=== PATIENT | female | born 1940 | race African-American/Black ===

== ENCOUNTER 2017-04-27 16:33 | Inpatient (IN) | payer MEDICARE ==
[~2017-04-27] VITALS: Ht 167.6 cm; Wt 69.4 kg
--- NOTE | ~2017-04-27 | CR72 ---
[facility] A Service of [facility] RADIOLOGY TEXT RESULTS PATIENT: KEATON SHEPARD LOCATION: [facility] 238-01 : 40 UNIT #: [id number] AGE: [address]: Fidelina Brannon MD SEX: F ORDER DR: [id number] [facility] [address] [facility]. [place], [place] [address] [id number] MR#: [id number] Acc #: [id number] NAME: KEATON SHEPARD : 1940 SEX: F STUDY DATE/TIME: 04/27/2017 17:16 UNIT: C2A ROOM: [facility] STUDY DESCRIPTION: CR Chest Single View Portable Attending Physician: Fidelina Brannon M.D. Ordering Physician: Castillo Lutz M.D. Primary Care Physician: Primary Care Physician No MEDICAL IMAGING REPORT This report is preliminary unless electronic signature is present EXAM Frontal chest 04/27/2017 INDICATIONS 76-year-old female with a fever, altered mental status, lethargy. Symptoms began yesterday. Hypertension. TECHNIQUE Frontal chest was performed. No comparisons. FINDINGS Postop changes of median sternotomy and bypass surgery present. Mild dextroscoliosis. Cardiac silhouette is enlarged. The vascularity is normal. There is eventration or elevation of the left hemidiaphragm, chronicity unclear without prior studies for comparison. There is some probable atelectasis/scarring in the lower lung zone. No effusion or dense consolidation. IMPRESSION 1. Cardiomegaly and postoperative changes related to bypass surgery. No effusion or dense consolidation. Eventration or elevation of the left hemidiaphragm of uncertain duration. Dictated by... Jass Martinez M.D. THIS IS AN ELECTRONICALLY VERIFIED REPORT Jass Martinez M.D. at 04/29/2017 6:14 AM Juan Carlos TD: 04/28/2017 08:23 [facility] A Service of [facility] RADIOLOGY TEXT RESULTS PATIENT: KEATON SHEPARD LOCATION: [facility] 238-01 : 40 UNIT #: [id number] AGE: [address]: Fidelina Brannon MD SEX: F ORDER DR: JOB #: [id number] MEDICAL IMAGING REPORT Page 1 of 1 COPY
--- NOTE | ~2017-04-27 | HP ---
Unit #: [id number] #: [id number] Patient: KEATON SHEPARD [id number] [address] [address] [id number] MR#: [id number] NAME: KEATON SHEPARD ROOM: Age: 76 Sex: F Admission Date: 04/27/2017 : 1940 Attending Physician: Castillo Lutz M.D. Primary Care Physician: No Primary Care Physician HISTORY AND PHYSICAL CHIEF COMPLAINT UTI, acute kidney injury. HISTORY This pleasant 76-year-old female with AODM, CAD, hypertension, is admitted for UTI with acute kidney injury. The patient states that she was well until yesterday when she developed dizziness when attempting to ambulate, along with urinary frequency, dysuria, anorexia. She slept all day. Her symptoms continued today. She was brought to this emergency department with a low-grade temperature. On urinalysis she has significant pyuria. Labs show acute kidney injury and dehydration. In the ER her rectal temperature was 102.8. She was given Tylenol, bolused with a liter of saline, and given a gram of Rocephin. PAST MEDICAL HISTORY 1. AODM x5 years. 2. CAD, status post three vessel CABG 1998. 3. Essential hypertension. 4. Hyperlipidemia. 5. Total abdominal hysterectomy. ALLERGIES No known drug allergies. HOME MEDICATIONS 1. Possibly Maxzide and lisinopril. 2. Pepcid 20 mg b.i.d. 3. Zocor 20 mg q.h.s. 4. Metformin 1000 mg b.i.d. 5. Tessalon perles p.r.n. FAMILY HISTORY CAD. SOCIAL HISTORY The patient lives with her daughter. She stopped smoking 25 years ago, does not drink alcohol. REVIEW OF SYSTEMS Notable for fatigue, urinary frequency, dizziness, dysuria, AODM, CAD, hypertension, hyperlipidemia, hysterectomy. All other systems were reviewed and are otherwise negative. Unit #: [id number] #: [id number] Patient: KEATON SHEPARD PHYSICAL EXAMINATION GENERAL: Very pleasant 76-year-old female currently in no acute distress. VITAL SIGNS: Rectal temperature is 102.8. Pulse 81. Respirations 16. Blood pressure 120/72. O2 saturation is 98% on room air. HEENT: Eyes PERRLAA, extraocular muscles are intact, some clouding of the cornea on the right. Pharynx is benign. NECK: Supple, without adenopathy or thyromegaly. CHEST: Clear. BACK: Without CVA tenderness. CARDIAC: Normal S1 and S2, without S3, S4 or murmur. ABDOMEN: Bowel sounds are present. No hepatosplenomegaly, tenderness or masses. EXTREMITIES: Without edema. Pedal pulses are present but diminished. No ulcers on the feet. NEUROLOGIC EXAM: Patient is awake, alert, oriented. Cranial nerves are intact. Equal strength throughout. DIAGNOSTIC STUDIES LABORATORY: On admission labs hematocrit is 35.9, white blood count is 14.3, normal platelet count, normal coags, negative cardiac markers; SMA-12 glucose 162, BUN 32, creatinine 1.4, sodium 130, chloride 94, alkaline phosphatase 97, normal lactic acid, lipase and amylase. Urinalysis positive leukocyte esterase and protein with 100 to 200 red cells, 50 to 100 white cells, 4+ bacteria. No squamous cells. CARDIOVASCULAR: EKG shows normal sinus rhythm, rate 72 with T-wave inversions noted laterally without an old EKG for comparison. IMAGING: Chest x-ray no acute disease. ASSESSMENT 1. Urinary tract infection. 2. Acute kidney injury secondary to dehydration. 3. Coronary artery disease, status post coronary artery bypass graft. 4. Hypovolemic hyponatremia. 5. Essential hypertension. 6. Hyperlipidemia. 7. Adult-onset diabetes mellitus. PLANS 1. IV fluids. 2. Antibiotics. 3. Obtain home medication sheet. 4. Sliding scale insulin. 5. DVT prophylaxis. 6. Would hold Maxzide if patient currently is taking. Dictated by Kayleen Nickerson M.D. AML/cf TD: 04/27/2017 20:48 JOB #: [id number] CC: [facility], [facility] Unit #: [id number] #: [id number] Patient: KEATON SHEPARD HISTORY AND PHYSICAL Page 1 of 1 X Kayleen Nickerson MD HISTORY AND PHYSICAL
--- NOTE | ~2017-04-27 | DS ---
Unit #: [id number] #: [id number] Patient: KEATON SHEPARD [id number] [address] [address] [id number] I MR#: [id number] NAME: KEATON SHEPARD ROOM: 238 Age: 76 Sex: F Admission Date: 04/27/2017 : 1940 Discharge Date: 04/29/2017 Attending Physician: Fidelina Brannon M.D. Primary Care Physician: No Primary Care Physician DISCHARGE SUMMARY PRIMARY CARE PROVIDER [facility]. PRINCIPAL DIAGNOSES 1. Sepsis secondary to E. coli urinary tract infection with associated E. coli bacteremia. 2. Acute kidney injury, prerenal, resolved. 3. Discharge creatinine 0.9. 4. Hypovolemic hyponatremia resolved. 5. Diabetes mellitus type 2, noninsulin-requiring controlled. 6. Hypertension. 7. Hyperlipidemia. 8. Gastroesophageal reflux disease. 9. Coronary artery disease. 10. Asymptomatic bradycardia. CONSULTANTS None. PROCEDURES Chest x-ray in April 27, 2017, with postoperative changes of coronary artery bypass grafting, no other acute findings. CLINICAL HISTORY AND HOSPITAL COURSE Ms. Shepard is a very nice 76-year-old -[place] female who presents to the emergency department with dizziness, increasing fatigue, dysuria and increased urinary frequency. Patient also had poor appetite. In the emergency department, the patient was found to be febrile. Blood pressure was stable. Urinalysis was concerning for urinary tract infection. White blood cell count was also elevated as was the creatinine at 1.4. The patient was also mildly hyponatremic with a sodium of 130. The patient was subsequently admitted. The patient was placed on Rocephin for empiric coverage of urinary tract infection in addition to IV fluids. With these two treatments, patient has returned to her baseline. Urine culture is growing E. coli which is duran-sensitive. One of two blood cultures are growing gram-negative rods which on preliminary culture appears to be consistent with E. coli. I going to change her to pill antibiotics and complete a total of a 14-day course of treatment given her bacteremia. I will follow up repeat blood cultures done yesterday to ensure those are normal. The patient's fever has resolved as has her leukocytosis. The patient's acute kidney injury has also resolved and her hyponatremia has resolved. The patient did have some mild bradycardia with heart rates in the low 50s to high 40s. I will Unit #: [id number] #: [id number] Patient: KEATON SHEPARD note this was present more so with sleeping and was asymptomatic. TSH is currently pending and she is not on any medications which cause some bradycardia and this can be followed up as an outpatient. Patient will be discharged home today. DISCHARGE CONDITION Stable. DISCHARGE STATUS Discharged to home. DISCHARGE MEDICATIONS 1. Omnicef 300 mg p.o. b.i.d. for 12 days. 2. Famotidine 20 mg b.i.d. 3. Zocor 20 mg at bedtime. 4. Metformin 1000 mg b.i.d. DISCHARGE INSTRUCTIONS Patient instructed to follow a healthy heart diet. She can increase her activity as tolerated. FOLLOW UP Patient will follow up with her primary care provider at [facility] in 2 weeks. Dictated by... Fidelina Brannon M.D. ABBIE/frances TD: 04/29/2017 20:34 JOB #: [id number] DISCHARGE SUMMARY Page 1 of 1 X Fidelina Brannon MD DISCHARGE SUMMARY
--- NOTE | ~2017-04-27 | EKG ---
PATIENT: KEATON SHEPARD UNIT #: [id number] Ventricular Rate: 72 BPM Atrial Rate: 72 BPM P-R Interval: 152 ms QRS Duration: 94 ms Q-T Interval: 404 ms QTC Calculation(Bezet): 442 ms P [place]: 54 degrees Calculated R [place]: -15 degrees Calculated T [place]: 132 degrees Diagnosis Line: Normal sinus rhythm Diagnosis Line: Voltage criteria for left ventricular hypertrophy Diagnosis Line: Inferior infarct , age undetermined Diagnosis Line: ST and T wave abnormality, consider lateral ischemia Diagnosis Line: Abnormal ECG Diagnosis Line: No previous ECGs available Diagnosis Line: Confirmed by RADHAMES MILAN MD ([id number]) on Diagnosis Line: 04/28/2017 2:01:01 PM INTERPRETING MD: KAYLI ALEXANDER
[2017-04-27] MEDS ORDERED: BENZONATATE PO (17:23)
[2017-04-27] MEDS ORDERED: PATIENT'S PHARMACY (17:23)
[2017-04-27] MEDS ORDERED: ZOCOR PO (17:23)
[2017-04-27] MEDS ORDERED: METFORMIN PO (17:23)
[2017-04-27] MEDS ORDERED: ACID CONTROLLER20 MG PO (17:23)
[2017-04-27 17:26] LABS: BASOPHIL# 0.1 X10e3 (0-0.3); BASOPHIL% 0.5 % (0-2.5); HEMATOCRIT 35.9 % (35.0-45.0); HEMOGLOBIN 12.3 gm/dL (12.0-16.0); LYMPHOCYTE# 1.7 X10e3 (1.0-3.5); LYMPHOCYTE% 11.9 % (17.0-45.0); MEAN CELL VOLUME 89.4 FL (83-96); MEAN CORPUSCULAR HEMOGLOBIN 30.5 PG (28-34); MEAN CORPUSCULAR HGB CONC 34.1 g/dL (30-36); MEAN PLATELET VOLUME 6.5 FL (6.5-11.5); MONOCYTE# 1.3 X10e3 (0-1.0); MONOCYTE% 9.1 % (3.0-12.0); NEUTROPHIL# 11.2 X10e3 (1.5-7.1); NEUTROPHIL% 78.5 % (40-75); PLATELET COUNT 343 X10e3 (140-420); RED BLOOD COUNT 4.02 X10e (3.90-5.30); RED CELL DISTRIBUTION WIDTH 14.4 % (11.0-15.5); WHITE BLOOD COUNT 14.3 X10e3 (4.0-10.5)
[2017-04-27 17:34] LABS: DIFF IND NO
[2017-04-27 17:39] LABS: POC - CKMB 7.2 ng/mL (0.0-7.9); POC - TROPONIN <0.05 ng/mL (<=0.05)
[2017-04-27 17:42] LABS: PARTIAL THROMBOPLASTIN TIME 28.9 SECONDS (23.5-31.3)
[2017-04-27 17:54] LABS: BILIRUBIN, DIRECT 0.1 mg/dL (0.0-0.2); BILIRUBIN,INDIRECT 0.8 mg/dL (0.0-0.9); BILIRUBIN,TOTAL 0.9 mg/dL (0.2-2.0); BUN/CREATININE RATIO 22.85; CALCIUM SERUM 9.3 mg/dL (8.4-10.2); CREATININE SERUM 1.4 mg/dL (0.6-1.4); GLOM FILT RATE Estimated 36.4 mL/min (>60); MAGNESIUM 1.7 mg/dL (1.6-3.0); PHOSPHOROUS 2.7 mg/dL (2.5-4.6); PROTEIN TOTAL SERUM 8.1 g/dL (6.0-8.3)
[2017-04-27 19:30] LABS: URINE SOURCE CLEAN CATCH
[2017-04-27 19:36] LABS: URINE APPEARANCE CLOUDY; URINE BILIRUBIN NEG (NEG); URINE BLOOD 3+ (NEG); URINE COLOR YELLOW; URINE GLUCOSE NEG (NEG); URINE KETONE NEG (NEG); URINE LEUKOCYTE ESTERASE 2+ (NEG); URINE NITRATE NEG (NEG); URINE PROTEIN 2+ (NEG); URINE SPECIFIC GRAVITY 1.011 (1.003-1.035)
[2017-04-27 19:41] LABS: CULTURE INDICATED? YES; URBCS1 AUWI 100-200 /[HPF] (0-2); URINE BACTERIA AUWI 4+ (NEGATIVE); URINE SQUAMOUS EPITHELIAL CELL NONE SEEN /[HPF]; UWBCS1 AUWI 50-100 (0-5)
[2017-04-27 19:43] LABS: POC - CKMB 5.4 ng/mL (0.0-7.9); POC - TROPONIN <0.05 ng/mL (<=0.05)
[2017-04-28 06:09] LABS: BASOPHIL# 0.1 X10e3 (0-0.3); BASOPHIL% 0.5 % (0-2.5); EOSINOPHIL% 0.2 % (0.0-7.0); HEMOGLOBIN 11.5 gm/dL (12.0-16.0); LYMPHOCYTE# 1.8 X10e3 (1.0-3.5); LYMPHOCYTE% 14.7 % (17.0-45.0); MEAN CELL VOLUME 91.3 FL (83-96); MEAN CORPUSCULAR HGB CONC 32.9 g/dL (30-36); MEAN PLATELET VOLUME 6.7 FL (6.5-11.5); MONOCYTE# 1.4 X10e3 (0-1.0); MONOCYTE% 11.4 % (3.0-12.0); NEUTROPHIL# 8.9 X10e3 (1.5-7.1); NEUTROPHIL% 73.2 % (40-75); PLATELET COUNT 304 X10e3 (140-420); RED BLOOD COUNT 3.83 X10e (3.90-5.30); RED CELL DISTRIBUTION WIDTH 14.4 % (11.0-15.5); WHITE BLOOD COUNT 12.2 X10e3 (4.0-10.5)
[2017-04-28 06:12] LABS: DIFF IND NO
[2017-04-28 07:25] LABS: BUN/CREATININE RATIO 24.16; CALCIUM SERUM 8.6 mg/dL (8.4-10.2); CREATININE SERUM 1.2 mg/dL (0.6-1.4); GLOM FILT RATE Estimated 50.8 mL/min (>60); POTASSIUM 4.1 mmol/L (3.5-5.1)
[2017-04-29 06:14] LABS: HEMATOCRIT 32.4 % (35.0-45.0); MEAN CELL VOLUME 90.2 FL (83-96); MEAN CORPUSCULAR HEMOGLOBIN 30.5 PG (28-34); MEAN CORPUSCULAR HGB CONC 33.9 g/dL (30-36); MEAN PLATELET VOLUME 6.4 FL (6.5-11.5); RED BLOOD COUNT 3.59 X10e (3.90-5.30); RED CELL DISTRIBUTION WIDTH 14.4 % (11.0-15.5); WHITE BLOOD COUNT 10.4 X10e3 (4.0-10.5)
[2017-04-29 07:00] LABS: BUN/CREATININE RATIO 22.22; CALCIUM SERUM 8.7 mg/dL (8.4-10.2); CREATININE SERUM 0.9 mg/dL (0.6-1.4); POTASSIUM 4.4 mmol/L (3.5-5.1)
[2017-04-29] MEDS ORDERED: OMNICEF300 MG PO (10:07)
== END 2017-04-29 11:00 | disposition home or self-care (01) | DRG 872 ==
LOC: CED 16:33 → C2A 20:47 → CEDOF 20:47 → C2A 21:40
PROVIDERS: Emergency Medicine; Internal Medicine
DX: A41.51 Sepsis due to Escherichia coli [E. coli] (principal); N17.9 Acute kidney failure, unspecified; N39.0 Urinary tract infection, site not specified; E87.1 Hypo-osmolality and hyponatremia; R00.1 Bradycardia, unspecified; B96.20 Unspecified Escherichia coli [E. coli] as the cause of diseases classified elsewhere; E11.9 Type 2 diabetes mellitus without complications; I10 Essential (primary) hypertension; Z79.84 Long term (current) use of oral hypoglycemic drugs; E78.5 Hyperlipidemia, unspecified; K21.9 Gastro-esophageal reflux disease without esophagitis; I25.10 Atherosclerotic heart disease of native coronary artery without angina pectoris; Z87.891 Personal history of nicotine dependence; Z90.710 Acquired absence of both cervix and uterus
CPT/HCPCS: 36415; 71010; 80048; 80076; 81003; 82150; 82553; 82947; 83605; 83690; 83735; 84100; 84443; 84484; 85025; 85027; 85610; 85730; 87040; 87077; 87086; 87088; 87186; 93005; 96360; 99285; J0696; J1650; J1815